=== PATIENT | female | born 1955 | race Caucasian/White ===

== ENCOUNTER → 2017-04-10 | Outpatient (CLI) | payer OTHER ==
[~2017-04-10] MED LIST: ADVIL100 M2 PO; ALBUTEROL2.5 MG/0.1 INH; BRAIN MIGHT-DH1 EACH PO; COMPAZINE10 M1 PO; FISH OIL 1,0001 EAC5 PO; FLONASE 0.05%50 MCG NASAL; IBUPROFEN 800800 M1 PO; PEPCID40 MG PO; PERCOCET 10-321 EACH PO; PRILOSEC 20 MG20 MG PO; PROAIR HFA8.5 GM INH; ROBAXIN 750 MG750 M1 PO; ROBAXIN500 MG PO; SOY MENOPAUSE55 MG PO; UNICOMPLEX M TA1 TA1 PO; VICODIN 5-5001 EACH PO; ZOLOFT 50 MG TA50 M1 PO; ZOLOFT100 MG PO
== END ==
LOC: RAD 11:30
DX: Z12.31 Encounter for screening mammogram for malignant neoplasm of breast (principal)

== ENCOUNTER → 2018-04-30 | Outpatient (CLI) | payer OTHER | LOC: BC 04:18 | DX: Z12.31 Encounter for screening mammogram for malignant neoplasm of breast (principal) ==

== ENCOUNTER → 2019-05-11 | Outpatient (CLI) | payer OTHER | LOC: RAD 10:28 | DX: Z12.31 Encounter for screening mammogram for malignant neoplasm of breast (principal) ==